=== PATIENT | female | born 1955 | race Caucasian/White ===

== ENCOUNTER → 2016-05-06 | Outpatient (CLI) | payer BC ==
[~2016-05-06] MED LIST: ALPR1TAB2 PO; ASPI-781 PO; HYDR-762 PO; IBUP-1542 PO; LAMO200T18 PO; LOSA50TA6 PO; PENT100C6 PO; VORT20TA PO
--- NOTE | 2016-05-06 16:46 | RADRPT ---
PROCEDURE: XR Left Hip and pelvis. CLINICAL INDICATION: Left hip pain. Pelvic pain. Postop. TECHNIQUE: Two views. Frontal pelvis and lateral left hip. COMPARISON: 07/16/2015. FINDINGS: There is no fracture or dislocation. The soft tissues are normal. There is a left hip total arthroplasty which appears satisfactory. There is no lytic or blastic lesion. There are degenerative changes of the right hip with joint space narrowing and osteophytes. The upper pelvis is not included on the image. IMPRESSION: 1. Satisfactory postoperative appearance of the left hip. 2. Moderate degenerative changes of the right hip. RPTAT: QQ .Aubrey Brown MD, MD Date Time Electronically viewed and signed by .Aubrey Brown MD, on 05/06/2016 16:46 .R/
--- NOTE | 2016-05-06 19:50 | HKNOTE ---
DATE OF SERVICE: 05/06/2016 The patient comes in to discuss her upcoming total hip replacement. She is scheduled to have a righ t hip replacement in 1 week's time. After her left hip replacement, she developed C. difficile. On reviewing her chart, she lists herse lf as being ALLERGIC TO PENICILLIN, and therefore she probably had vancomycin for prophylaxis. She gets "hives" from penicillin. I will need to discuss with an infectious disease expert which an tibiotic is least likely to give her an allergic reaction, at the same time not precipitate C. diffi cile. She complains that her left hip occasionally subluxes. She has very loose joints. 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 The patient is advised that in order to stabilize her right hip at surgery, it may be necessary to i ncrease the length of the leg ____ by a quarter of an inch or increase the offset. Numerous further other questions were asked and answered. The patient would like to have a private room. I will ma ke every effort to get her one. Dictated By: KENDRA RAMIREZ/DEMETRIUS Conf#: [id number] DID#: [id number]
== END | disposition home or self-care (01) ==
LOC: HKI 15:44
DX: Z01.818 Encounter for other preprocedural examination (principal); Z96.642 Presence of left artificial hip joint; Z88.0 Allergy status to penicillin
CPT/HCPCS: 73502; G0463

== ENCOUNTER → 2016-06-09 | Outpatient (CLI) | payer BC ==
--- NOTE | 2016-06-09 22:06 | HKNOTE ---
DATE OF SERVICE: 06/09/2016 The patient is scheduled to have a right total hip replacement 2 weeks from now. We have not completely resolved the issues of the C. difficile. The patient was given vancomycin fo r prophylaxis at her last hip replacement. She listed in the notes that she was "ALLERGIC TO PENICI LLIN." On further discussion with her today, she is not quite sure if she does have an allergy. Gayla moulton got some kind of a rash when she was a child. She is under the care of Dr. Mcmillan ([phone] and [phone]). She is due to get another stoo l culture to see she still has C. difficile. She would like to be free of C. difficile with forced of the next surgery because she knows we are giving her antibiotics for the next surgery as well. I called Dr. Mcmillan. He told me that this patient had a colonoscopy in March that showed some inf lammation of the distal colon (colitis). Dr. Mcmillan indicates that any antibiotic need to C. difficile. He also indicates that Flagyl intrav enously is an excellent way to treat C. difficile. The patient was sent to the lab today to get another stool culture and she was, at her request, give n a prescription for Percocet for pain. She did a great deal of pain and she is torn between waitin g for the C. difficile to be completely healed/cured before she decides to proceed with her hip surg ro[place]. The patient is being sent for a test today and we will call her when we have the result. Dictated By: KENDRA RAMIREZ/DEMETRIUS Conf#: [id number] DID#: [id number]
== END | disposition home or self-care (01) ==
LOC: HKI 15:05
DX: Z01.818 Encounter for other preprocedural examination (principal); Z88.0 Allergy status to penicillin
CPT/HCPCS: G0463

== ENCOUNTER → 2016-08-11 | Outpatient (CLI) | payer BC ==
--- NOTE | 2016-08-11 18:51 | HKNOTE ---
DATE OF SERVICE: 08/11/2016 Patient comes to discuss her "various issues." She is scheduled to have her right total hip replace ment in 3 weeks' time. She now complains of pain in her left groin which is aggravated by forcing her left hip against grav ity, indicating that she also has an element of psoas tendinitis. Patient got back her stool report yesterday on the culture and was "negative for C. difficile." The patient does not have any ideas as to how we can avoid getting C. difficile on her next operatio n. I called Dr. Benito Albarran and he indicated that we should use prolonged vancomycin intravenous ly and if necessary indicated that we should give her prolonged course of vancomycin after surgery, possibly for 3 days. The patient is being referred to Dr. Lara in [place] for his psoas tendinitis. Please note also that there were recent problems with her left hip is subluxing. As noted in her previous note, the ross ent has markedly loose ligaments. Discussed with her today that we will use a constrained socket ra ther than lengthening her right leg. Dictated By: KENDRA RAMIREZ/DEMETRIUS Conf#: [id number] DID#: [id number]
== END | disposition home or self-care (01) ==
LOC: HKI 14:56
DX: M25.551 Pain in right hip (principal); M25.552 Pain in left hip; M76.12 Psoas tendinitis, left hip
CPT/HCPCS: G0463